=== PATIENT | female | born 1985 | race Caucasian/White ===

== ENCOUNTER → 2021-07-10 | Outpatient (CLI) | payer MEDICAID ==
--- NOTE | 2021-07-10 14:54 | US ---
EXAMINATION TYPE: US abdomen complete DATE OF EXAM: 07/10/2021 COMPARISON: NONE CLINICAL HISTORY: 36-year-old female R10.11 RUQ PAIN. TECHNIQUE: Multiple sonographic images of the abdomen are obtained. FINDINGS: EXAM MEASUREMENTS: Liver Length: 13.2 cm Gallbladder Wall: 0.2 cm CBD: 0.4 cm Spleen: 11.3 cm Right Kidney: 11.0x5.4x3.5 cm Left Kidney: 12.0x5.2x4.8 cm Pancreas: wnl Liver: wnl Gallbladder: wnl Evidence for sonographic Connolly's sign: No CBD: wnl Spleen: wnl Right Kidney: wnl Left Kidney: wnl Upper IVC: wnl Abd Aorta: wnl IMPRESSION: Unremarkable sonographic examination of the abdomen.
== END ==
LOC: RADUSWWP 08:59
PROVIDERS: ATTEND Family Medicine
DX: R10.11 Right upper quadrant pain (principal)
CPT/HCPCS: 76700